=== PATIENT | female | born 1925 | race Caucasian/White ===

== ENCOUNTER 2017-02-08 18:00 | Emergency (ER) | payer OTHER ==
[~2017-02-08] VITALS: Ht 154.9 cm; Wt 68.4 kg
[~2017-02-08 18:00] MED LIST: ADULT LOW DOSE81 M1 PO; ALEVE220 MG PO; AMARYL1 MG PO; ANTIVERT25 MG PO; BIAXIN500 MG PO; COMBIGAN O20 DROP/5 BOTH EYES; COZAAR100 MG PO; DETROL LA4 MG PO; DIABETA,MICRON2.5 MG PO; GLIMEPIRIDE2 MG PO; LEVAQUIN750 MG PO; LEVOTHROID,SY0.05 MG PO; LEVOTHYROXINE50 MCG PO; LOSARTAN POTAS100 MG PO; LOSARTAN-HCTZ1 EAC1 PO; LOSARTAN-HCTZ1 EACH PO; LUMIGAN 0.50 DROP/22 BOTH EYES; MEDROL DOSEPAK4 MG PO; NATURAL CALCIU500 MG PO; OMEPRAZOLE40 M1 PO; PAXIL10 MG PO; PRAVACHOL10 MG PO; PRAVASTATIN SOD10 MG PO; PRED FORTE100 DROP/5 LEFT EYE; PRESERVISION T1 EACH PO; VALIUM5 MG PO; VITAMIN D22000 UNIT PO; VITAMIN D31000 UNIT PO; ZOFRAN ODT8 MG PO; ZOFRAN4 MG PO
[2017-02-08 19:16] LABS: HEMATOCRIT 46.2 % (36.0-46.0); MCH 31.2 PG (29.0-34.0); MCHC 33.8 G/DL (30.0-36.0); MCV 92.4 FL (83-99); MEAN PLAT.VOLUME 9.6 uM^3 (9.5-12.4); PLATELET COUNT 270 K/uL (156-360); RBC DIS.WIDTH-CV 13.2 % (11.8-14.6); RBC DIS.WIDTH-SD 45.1 % (39-53); WHITE BLOOD COUNT 5.9 K/uL (4.1-10.2)
[2017-02-08 19:24] LABS: CHLORIDE 105 mEq/L (99-109); POTASSIUM 3.8 mEq/L (3.7-5.4); SODIUM 140 mEq/L (136-147)
[2017-02-08 19:26] LABS: GLUCOSE 127 mg/dL (70-99)
[2017-02-08 19:27] LABS: ANION GAP 11 MEQ/L (2-14)
[2017-02-08 19:30] LABS: GFR ESTIMATE (CALCULATED) 50 mL/min/
[2017-02-08 19:31] LABS: UREA NITROGEN (BUN) 17 mg/dL (9-23)
[2017-02-08 19:33] LABS: LIPASE 24 U/L (1.0-51.0)
[2017-02-08 20:00] LABS: ADD MIUA? YES; BILIRUBIN NEGATIVE; BLOOD SMALL; COLOR STRAW ((YELLOW)); GLUCOSE (STRIP) NEGATIVE; KETONES NEGATIVE; LEUKOCYTES NEGATIVE; NITRITE NEGATIVE; PROTEIN (STRIP) NEGATIVE; SPECIFIC GRAVITY 1.006 (1.000-1.030); UROBILINOGEN 0.2 MG/DL (0.2-1.0)
[2017-02-08 20:01] LABS: BACTERIA NONE SEEN /HPF; EPITHELIAL CELLS NONE SEEN /HPF; MUCUS NONE SEEN /LPF; RED BLOOD CELLS 0-5 /HPF (0-5); UCUL ADDED? NO; WHITE BLOOD CELLS 0-5 /HPF (0-5)
[2017-02-08 20:25] VITALS: BP 134/75
== END 2017-02-08 20:31 | disposition home or self-care (01) ==
LOC: EME 18:00
PROVIDERS: Emergency Medicine
DX: R53.1 Weakness (principal); E11.9 Type 2 diabetes mellitus without complications; E78.5 Hyperlipidemia, unspecified; I10 Essential (primary) hypertension
CPT/HCPCS: 80048; 81003; 83690; 85027; 99281; 99284